=== PATIENT | male | born 1975 | race Hispanic/Latino ===

== ENCOUNTER 2023-01-08 13:26 | Inpatient (IN) | payer OTHER ==
[~2023-01-08] VITALS: Ht 170.2 cm; Wt 92.5 kg
[2023-01-08 14:06] LABS: BASOPHILS # (AUTO) 0.05 K/uL (0.00-0.20); BASOPHILS % (AUTO) 0.5 % (0.0-5.0); EOSINOPHILS # (AUTO) 0.12 K/uL (0.00-0.70); EOSINOPHILS % (AUTO) 1.3 % (0.0-8.0); HEMATOCRIT 49.1 % (42-54); IMMATURE GRANULOCYTE ABSOLUTE 0.04 K/uL (0-1); LYMPHOCYTES # (AUTO) 1.6 K/uL (1.0-4.8); LYMPHOCYTES % (AUTO) 16.9 % (21.0-51.0); MEAN CORPUSCULAR HEMOGLOBIN 33.2 pg (27.0-33.0); MEAN CORPUSCULAR HGB CONC 36.7 g/dL (32.0-36.0); MEAN CORPUSCULAR VOLUME 90.6 fL (79-99); MONOCYTES # (AUTO) 0.8 K/uL (0.1-1.0); MONOCYTES % (AUTO) 8.3 % (3.0-13.0); NEUTROPHILS # (AUTO) 6.7 K/uL (1.8-7.7); NEUTROPHILS % (AUTO) 72.6 % (40.0-77.0); PLATELET COUNT (AUTO) 192 K/uL (130-400); RED BLOOD CELL COUNT(AUTO) 5.42 MIL/uL (4.50-6.20); RED CELL DISTRIBUTION WIDTH 12.9 % (11.0-15.5); WHITE BLOOD COUNT (AUTO) 9.3 K/uL (4.8-10.8)
[2023-01-08 14:21] LABS: CREATININE 0.8 mg/dL (0.5-1.5); POTASSIUM 3.5 mmol/L (3.5-5.1)
[2023-01-08 14:27] LABS: ALBUMIN 3.1 g/dL (3.5-5.0); BILIRUBIN,TOTAL 3.5 mg/dL (0.2-1.0); TOTAL PROTEIN, SERUM 7.8 g/dL (6.0-8.3)
[2023-01-08] MEDS ORDERED: IOHEXOL 350 MG/ML 100ML INFUS..BTL IV ONE (14:41)
[2023-01-08] MEDS ORDERED: VANCOMYCIN KIT 1 GM/250 ML IV.KIT IV ONE (15:00)
[2023-01-08] MEDS ORDERED: TETANUS/DIPHTHERIA TOXOID [ADULT] 0.5 ML VIAL IM ONE (15:00)
[2023-01-08] MEDS ORDERED: 0.9%NACL 1000ML 1,000 ML IV ONE (15:00)
[2023-01-08] MEDS ORDERED: ZOSYN 3.375GM +NS 50ML IVPB ONE (15:00)
[2023-01-08] MEDS ORDERED: KETOROLAC 30MG VIAL (30MG/ML) IVP ONE (16:30)
[2023-01-08] MEDS ORDERED: PHARMACY COMMUNICATION MISC PRN (18:30)
[2023-01-08] MEDS ORDERED: CHLORDIAZEPOXIDE HCL 25 MG CAP PO PRN (18:30)
[2023-01-08] MEDS ORDERED: THIAMINE HCL 100 MG/ML 2ML VIAL IVP ONE (18:30)
[2023-01-08] MEDS ORDERED: LORAZEPAM 2 MG/ML 1 ML VIAL IVP PRN (18:30)
[2023-01-08] MEDS ORDERED: PHARMACY COMMUNICATION MISC SCH (18:30)
[2023-01-08] MEDS ORDERED: VANCOMYCIN PROTOCOL PER PHARMACY IV SCH (18:30)
[2023-01-08 18:37] LABS: INR 0.94 (0.85-1.15); PROTHROMBIN TIME 10.9 SEC (9.6-11.6)
[2023-01-08 18:38] LABS: PARTIAL THROMBOPLASTIN TIME 36.2 SEC (26.3-35.5)
[2023-01-08 19:00] LABS: MAGNESIUM 1.8 mg/dL (1.80-2.40); THYROID STIMULATING HORMONE 1.9 uIU/mL (0.36-3.74)
[2023-01-08] MEDS ORDERED: MORPHINE 2 MG SYG IVP PRN (19:00)
[2023-01-08 19:13] LABS: HEMOGLOBIN A1C 4.5 % (4.0-6.0)
[2023-01-08] MEDS: AMP/SULBAC 3GM+NS 100ML 100 ML IV SCH (19:24)
[2023-01-08] MEDS: PANTOPRAZOLE 40 MG/VIAL IVP SCH (19:24)
[2023-01-08] MEDS: THIAMINE HCL 100 MG, FOLIC ACID 1 MG, M.V.I. IV [ADULT] 10 ML in 0.9%NACL 1000ML 1,000 ML IV SCH (19:24)
[2023-01-08] MEDS: KETOROLAC 15MG/ML VIAL (15MG/ML) IV PRN (19:25)
[2023-01-08 19:28] LABS: APPEARANCE,URINE CLEAR (CLEAR); BILIRUBIN,URINE NEGATIVE (NEGATIVE); COLOR,URINE YELLOW (YELLOW); GLUCOSE, URINE (UA) NEGATIVE (NEGATIVE); KETONES,URINE NEGATIVE (NEGATIVE); LEUKOCYTE ESTERASE ,URINE NEGATIVE Leu/uL (NEGATIVE); NITRATE,URINE NEGATIVE (NEGATIVE); OCCULT BLOOD,URINE NEGATIVE (NEGATIVE); PH,URINE 6.5 (5.0-8.0); PROTEIN,URINE 50 mg/dL (NEGATIVE); UROBILINOGEN,URINE 3 mg/dL (0.2-1.0)
[2023-01-08 19:29] LABS: ADD UA MICROSCOPIC YES
[2023-01-08 19:31] LABS: RBC,URINE 0-1 /HPF (0-1); WBC,URINE 0-1 /HPF (0-1)
[2023-01-08 19:33] LABS: AMPHET/METH SCREEN,URINE NEGATIVE (NEGATIVE); BARBITURATE SCREEN, URINE NEGATIVE (NEGATIVE); BENZODIAZEPINES SCREEN,URINE NEGATIVE (NEGATIVE); CANNABINOID SCREEN,URINE NEGATIVE (NEGATIVE); COCAINE SCREEN,URINE POSITIVE (NEGATIVE); OPIATE SCREEN,URINE NEGATIVE (NEGATIVE); PHENCYCLIDINE SCREEN,URINE NEGATIVE (NEGATIVE)
[2023-01-08 23:55] VITALS: BP 159/95; PULSE 99; RESP 20
[2023-01-09] VITALS (8 sets, daily range): BP systolic 143–149; BP diastolic 83–94; PULSE 79–93; RESP 18–20; O2SAT 95–97
[2023-01-09 00:07] LABS: SARS-CoV-2, RNA, NAAT NEGATIVE SARS CoV-2 (NEGATIVE)
[2023-01-09] MEDS ORDERED: KETOROLAC 30MG VIAL (30MG/ML) ONE (00:32)
[2023-01-09] MEDS: VANCOMYCIN 1.25 GM/250 ML BAG 250 ML IV SCH ×4 (00:40→23:16)
[2023-01-09] MEDS: KETOROLAC 15MG/ML VIAL (15MG/ML) IV PRN (00:45)
[2023-01-09] MEDS: AMP/SULBAC 3GM+NS 100ML 100 ML IV SCH ×5 (01:21→23:16)
[2023-01-09 04:56] LABS: BASOPHILS # (AUTO) 0.04 K/uL (0.00-0.20); BASOPHILS % (AUTO) 0.6 % (0.0-5.0); EOSINOPHILS # (AUTO) 0.13 K/uL (0.00-0.70); EOSINOPHILS % (AUTO) 1.8 % (0.0-8.0); HEMATOCRIT 41.2 % (42-54); IMMATURE GRANULOCYTE ABSOLUTE 0.04 K/uL (0-1); LYMPHOCYTES # (AUTO) 1.1 K/uL (1.0-4.8); MEAN CORPUSCULAR HEMOGLOBIN 33.4 pg (27.0-33.0); MEAN CORPUSCULAR HGB CONC 35.9 g/dL (32.0-36.0); MONOCYTES # (AUTO) 0.7 K/uL (0.1-1.0); MONOCYTES % (AUTO) 9.8 % (3.0-13.0); NEUTROPHILS # (AUTO) 5.2 K/uL (1.8-7.7); NEUTROPHILS % (AUTO) 72.2 % (40.0-77.0); PLATELET COUNT (AUTO) 170 K/uL (130-400); RED BLOOD CELL COUNT(AUTO) 4.43 MIL/uL (4.50-6.20); RED CELL DISTRIBUTION WIDTH 12.6 % (11.0-15.5); WHITE BLOOD COUNT (AUTO) 7.1 K/uL (4.8-10.8)
[2023-01-09 05:17] LABS: ALBUMIN 2.4 g/dL (3.5-5.0); BILIRUBIN,TOTAL 1.6 mg/dL (0.2-1.0); MAGNESIUM 1.6 mg/dL (1.80-2.40); POTASSIUM 3.6 mmol/L (3.5-5.1); TOTAL PROTEIN, SERUM 6.4 g/dL (6.0-8.3)
[2023-01-09] MEDS ORDERED: MAGNESIUM 2GM PREMIX 50ML 50 ML IV SCH (06:30)
[2023-01-09] MEDS ORDERED: COMPOUND IV REFRIGERATED 1 EACH IVSOLN MISC PRN (08:30)
[2023-01-09] MEDS ORDERED: KETOROLAC 15MG/ML VIAL (15MG/ML) IV PRN (10:00)
[2023-01-09] MEDS: MORPHINE 2 MG SYG IVP PRN ×3 (10:23→21:59)
[2023-01-09 15:27] LABS: HEPATITIS A IGM ANTIBODY Non-Reactive (Nonreactive); HEPATITIS B CORE IGM ANTIBODY Non-Reactive (Negative); HEPATITIS B SURFACE ANTIGEN Non-Reactive (Nonreactive); HEPATITIS C ANTIBODY Non-Reactive (Nonreactive)
[2023-01-09] MEDS: THIAMINE HCL 100 MG, FOLIC ACID 1 MG, M.V.I. IV [ADULT] 10 ML in 0.9%NACL 1000ML 1,000 ML IV SCH (18:24)
[2023-01-09] MEDS: PANTOPRAZOLE 40 MG/VIAL IVP SCH (18:27)
[2023-01-10] VITALS (31 sets, daily range): BP systolic 121–163; BP diastolic 73–97; PULSE 72–103; RESP 14–22; O2SAT 96–97
[2023-01-10] MEDS: AMP/SULBAC 3GM+NS 100ML 100 ML IV SCH ×4 (05:12→23:15)
[2023-01-10 05:56] LABS: BASOPHILS # (AUTO) 0.03 K/uL (0.00-0.20); BASOPHILS % (AUTO) 0.4 % (0.0-5.0); EOSINOPHILS # (AUTO) 0.15 K/uL (0.00-0.70); HEMATOCRIT 41.8 % (42-54); IMMATURE GRANULOCYTE ABSOLUTE 0.04 K/uL (0-1); LYMPHOCYTES # (AUTO) 1.5 K/uL (1.0-4.8); LYMPHOCYTES % (AUTO) 19.5 % (21.0-51.0); MEAN CORPUSCULAR HEMOGLOBIN 33.1 pg (27.0-33.0); MEAN CORPUSCULAR HGB CONC 35.9 g/dL (32.0-36.0); MEAN CORPUSCULAR VOLUME 92.3 fL (79-99); MONOCYTES # (AUTO) 0.8 K/uL (0.1-1.0); MONOCYTES % (AUTO) 10.1 % (3.0-13.0); NEUTROPHILS # (AUTO) 5.1 K/uL (1.8-7.7); NEUTROPHILS % (AUTO) 67.5 % (40.0-77.0); PLATELET COUNT (AUTO) 187 K/uL (130-400); RED BLOOD CELL COUNT(AUTO) 4.53 MIL/uL (4.50-6.20); RED CELL DISTRIBUTION WIDTH 12.7 % (11.0-15.5); WHITE BLOOD COUNT (AUTO) 7.6 K/uL (4.8-10.8)
[2023-01-10 06:15] LABS: ALBUMIN 2.5 g/dL (3.5-5.0); BILIRUBIN,TOTAL 1.7 mg/dL (0.2-1.0); CREATININE 0.8 mg/dL (0.5-1.5); MAGNESIUM 1.7 mg/dL (1.80-2.40); POTASSIUM 3.1 mmol/L (3.5-5.1); TOTAL PROTEIN, SERUM 6.8 g/dL (6.0-8.3)
[2023-01-10] MEDS ORDERED: POTASSIUM CHLORIDE 20MEQ/100ML 100 ML IV PRN ×2 (07:30→10:00)
[2023-01-10] MEDS ORDERED: ROCURONIUM 10MG/1ML SYR 10 MG/ML ML ONE ×2 (07:37→07:49)
[2023-01-10] MEDS ORDERED: PROPOFOL 10 MG/ML 20ML VIAL IV ONE (07:37)
[2023-01-10] MEDS ORDERED: MIDAZOLAM HCL 1 MG/ML 2ML VIAL ONE ×2 (07:38→07:45)
[2023-01-10] MEDS ORDERED: FENTANYL CITRATE PF 50 MCG/1 ML 2ML VIAL ONE ×2 (07:38)
[2023-01-10] MEDS ORDERED: ONDANSETRON 4MG INJ ONE (07:47)
[2023-01-10] MEDS: VANCOMYCIN 1.25 GM/250 ML BAG 250 ML IV SCH ×3 (08:00→23:14)
[2023-01-10] MEDS ORDERED: MEPERIDINE-PF 25 MG/ML SYG ONE ×3 (08:08→08:53)
[2023-01-10] MEDS ORDERED: HYDRALAZINE 20MG/ML VIAL ONE (09:07)
[2023-01-10] MEDS ORDERED: POTASSIUM CHLORIDE 10% ELIXIR 20 MEQ/15 ML UDCUP PO PRN (10:00)
[2023-01-10] MEDS: KCL 20 MEQ ERTAB PO PRN ×2 (10:10→10:11)
[2023-01-10] MEDS ORDERED: ACETAMINOPHEN WITH CODEINE 1 TAB TAB PO PRN (11:30)
[2023-01-10] MEDS ORDERED: MORPHINE 4 MG SYG IVP PRN (11:30)
[2023-01-10] MEDS: FLUCONAZOLE 200 MG/NS 100 ML IV SCH (13:17)
[2023-01-10] MEDS: MORPHINE 4 MG SYG IVP PRN ×3 (13:21→23:20)
[2023-01-10] MEDS: PANTOPRAZOLE 40 MG/VIAL IVP SCH (17:32)
[2023-01-10] MEDS: THIAMINE HCL 100 MG, FOLIC ACID 1 MG, M.V.I. IV [ADULT] 10 ML in 0.9%NACL 1000ML 1,000 ML IV SCH (17:33)
[2023-01-11] VITALS (7 sets, daily range): BP systolic 122–151; BP diastolic 70–89; PULSE 74–91; RESP 18–20; O2SAT 100
[2023-01-11] MEDS: MORPHINE 4 MG SYG IVP PRN ×2 (02:46→14:53)
[2023-01-11] MEDS: AMP/SULBAC 3GM+NS 100ML 100 ML IV SCH ×4 (05:19→23:46)
[2023-01-11 06:38] LABS: BASOPHILS # (AUTO) 0.04 K/uL (0.00-0.20); BASOPHILS % (AUTO) 0.7 % (0.0-5.0); EOSINOPHILS # (AUTO) 0.18 K/uL (0.00-0.70); EOSINOPHILS % (AUTO) 3.1 % (0.0-8.0); HEMATOCRIT 39.9 % (42-54); IMMATURE GRANULOCYTE ABSOLUTE 0.02 K/uL (0-1); LYMPHOCYTES # (AUTO) 1.2 K/uL (1.0-4.8); MEAN CORPUSCULAR HEMOGLOBIN 33.2 pg (27.0-33.0); MEAN CORPUSCULAR HGB CONC 35.1 g/dL (32.0-36.0); MEAN CORPUSCULAR VOLUME 94.5 fL (79-99); MONOCYTES # (AUTO) 0.7 K/uL (0.1-1.0); MONOCYTES % (AUTO) 11.8 % (3.0-13.0); NEUTROPHILS # (AUTO) 3.7 K/uL (1.8-7.7); NEUTROPHILS % (AUTO) 63.1 % (40.0-77.0); PLATELET COUNT (AUTO) 194 K/uL (130-400); RED BLOOD CELL COUNT(AUTO) 4.22 MIL/uL (4.50-6.20); RED CELL DISTRIBUTION WIDTH 12.8 % (11.0-15.5); WHITE BLOOD COUNT (AUTO) 5.9 K/uL (4.8-10.8)
[2023-01-11 06:58] LABS: ALBUMIN 2.4 g/dL (3.5-5.0); BILIRUBIN,TOTAL 1.1 mg/dL (0.2-1.0); CREATININE 0.8 mg/dL (0.5-1.5); MAGNESIUM 1.9 mg/dL (1.80-2.40); POTASSIUM 3.4 mmol/L (3.5-5.1); TOTAL PROTEIN, SERUM 6.6 g/dL (6.0-8.3)
[2023-01-11] MEDS: LISINOPRIL 10 MG TABLET PO SCH (08:53)
[2023-01-11] MEDS: VANCOMYCIN 1.25 GM/250 ML BAG 250 ML IV SCH (08:53)
[2023-01-11] MEDS: KCL 20 MEQ ERTAB PO PRN ×2 (08:54→12:34)
[2023-01-11] MEDS: FLUCONAZOLE 200 MG/NS 100 ML IV SCH (12:32)
[2023-01-11] MEDS: VANCOMYCIN 1G/250ML KIT 250 ML IV SCH ×2 (16:24→23:46)
[2023-01-11] MEDS: PANTOPRAZOLE 40 MG/VIAL IVP SCH (17:52)
[2023-01-11] MEDS: MORPHINE 2 MG SYG IVP PRN (17:57)
[2023-01-12] VITALS (9 sets, daily range): BP systolic 114–135; BP diastolic 67–80; PULSE 70–88; RESP 17–20; O2SAT 97–100
[2023-01-12] MEDS: AMP/SULBAC 3GM+NS 100ML 100 ML IV SCH ×3 (06:02→19:35)
[2023-01-12] MEDS: VANCOMYCIN 1G/250ML KIT 250 ML IV SCH ×2 (08:36→17:31)
[2023-01-12] MEDS: LISINOPRIL 10 MG TABLET PO SCH (08:36)
[2023-01-12] MEDS: FLUCONAZOLE 200 MG/NS 100 ML IV SCH (14:01)
[2023-01-12] MEDS: MORPHINE 4 MG SYG IVP PRN (15:55)
[2023-01-12] MEDS: PANTOPRAZOLE 40 MG/VIAL IVP SCH (19:35)
[2023-01-12] MEDS: MORPHINE 2 MG SYG IVP PRN (19:40)
[2023-01-13] MEDS: AMP/SULBAC 3GM+NS 100ML 100 ML IV SCH ×3 (01:05→13:05)
[2023-01-13] MEDS: VANCOMYCIN 1G/250ML KIT 250 ML IV SCH ×3 (01:06→15:51)
[2023-01-13 04:00] VITALS: BP 131/86; PULSE 83; RESP 19
[2023-01-13] MEDS: MORPHINE 4 MG SYG IVP PRN (05:08)
[2023-01-13 08:00] VITALS: BP 134/85; PULSE 70; RESP 19; O2SAT 100
[2023-01-13] MEDS: LISINOPRIL 10 MG TABLET PO SCH (08:45)
[2023-01-13] MEDS: MORPHINE 2 MG SYG IVP PRN ×2 (10:08→13:45)
[2023-01-13 12:00] VITALS: BP 134/84; PULSE 81; RESP 19
[2023-01-13] MEDS: FLUCONAZOLE 200 MG/NS 100 ML IV SCH (13:05)
[2023-01-13 16:00] VITALS: BP 136/98; PULSE 80; RESP 19
== END 2023-01-13 18:35 | disposition home or self-care (01) | DRG 872 ==
LOC: EDH 13:26 → EDHIP 13:27 → 3CH 23:43
PROVIDERS: ADMIT Internal Medicine; ATTEND Internal Medicine
PROC: 0J9J0ZZ Drainage of Right Hand Subcutaneous Tissue and Fascia, Open Approach (ICD-10-PCS; principal; 2023-01-11)
DX: A41.9 Sepsis, unspecified organism (principal); E87.1 Hypo-osmolality and hyponatremia; L02.511 Cutaneous abscess of right hand; L03.113 Cellulitis of right upper limb; Z20.822 Contact with and (suspected) exposure to COVID-19; E86.1 Hypovolemia; M65.841 Other synovitis and tenosynovitis, right hand; Y04.1XXA Assault by human bite, initial encounter; E66.9 Obesity, unspecified; F10.10 Alcohol abuse, uncomplicated; F14.10 Cocaine abuse, uncomplicated; F17.220 Nicotine dependence, chewing tobacco, uncomplicated; Z91.51 Personal history of suicidal behavior; Z68.32 Body mass index [BMI] 32.0-32.9, adult
CPT/HCPCS: 36415; 73130; 73201; 76705; 80053; 80074; 80202; 80305; 81001; 82550; 82948; 83036; 83605; 83735; 84145; 84443; 85025; 85610; 85651; 85730; 86140; 86701; 87070; 87076; 87205; 87390; 87635; 90714; 93005; C9113; G0378; J0295; J0360; J1450; J1885; J2175; J2250; J2270; J2405; J2543; J2704; J3010; J3370; J3411; J3475; J3490; J7030; Q9967; 3370; A4222; A4223; A4600; A4930